=== PATIENT | female | born 1935 | race Caucasian/White ===

== ENCOUNTER 2017-11-20 10:59 | Emergency (ER) | payer MEDICARE ==
--- NOTE | 2017-11-20 11:41 | RAD ---
Indication: Ecchymosis at the LEFT temporal region post fall. History of breast carcinoma. Comparison: March 07, 2017 MRI. Technique: Noncontrast CT vertex of skull through foramen magnum. Report: Mild prominence of the cerebral sulci and cerebellar fissures reflecting atrophy. Unremarkable ventricles and basal cisterns. Negative for jo matter white matter obscuration, intra or extra-axial hemorrhage, or mass effect. Negative for calvarial or skull base fracture. Clear visualized paranasal sinuses and mastoid air spaces. Mild infiltrative LEFT frontotemporal scalp hematoma. IMPRESSION: 1. Mild LEFT frontotemporal scalp hematoma. 2. No CT evidence for fracture or traumatic brain injury. 3. Mild involutional change. No acute intracranial process evident.
[2017-11-20 12:57] VITALS: BP 158/94
--- NOTE | 2017-11-20 13:00 | RAD ---
Indication: LEFT fifth -- eighth rib fracture following injury. History of breast cancer. Comparison: February 23, 2017 CT. Technique: Sitting AP chest and 4 dedicated LEFT rib views. Report: No focal pulmonary lesion, compelling alveolar consolidation, pleural effusion, pneumothorax. Upper normal heart size. Mildly tortuous thoracic aorta. Unremarkable central pulmonary vasculature. No definitive LEFT rib fracture evident. Unremarkable soft tissue contours. 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 IMPRESSION: No LEFT rib fracture or pneumothorax evident. No evidence for acute intrathoracic disease.
--- NOTE | 2017-11-29 08:55 | ED ---
Reynaldo Wolfe Tiffany, scribed for Edgar Corona MD on 11/20/17 at 1151 . Complex/Multi-Sys Presentation - HPI Summary HPI Summary: The patient is an 82 year old female BIBA complains of bumping her head on ground s/p opening her car door, slipping on the snow, falling on the ground with her walker on 11/20/17 at 10:00. The patient rates the pain 2/10 in severity. Symptoms aggravated by nothing. Symptoms alleviated by nothing. States that she heard a crack when she hit her head, couldnt get up from ground but can never get up. Reports headache. Additionally complains of pain under left breast from falling on her right side. Patient denies dizziness, lightheadedness, neck pain. Also denies recent illness. Not taking blood thinners. - History Of Current Complaint Chief Complaint: EDHeadInjury Time Seen by Provider: 11/20/17 11:01 Hx Obtained From: Patient Onset/Duration: Sudden Onset, Lasting Minutes - At 10:00 today, Still Present Timing: Constant Severity Currently: Mild - 2/10 Aggravating Factor(s): Nothing Alleviating Factor(s): Nothing Associated Signs And Symptoms: Positive: Headache, Other - pain under right breast from falling on her right side; NEGATIVE: lightheadedness, neck pain, recent illness. Negative: Dizziness - Allergies/Home Medications Allergies/Adverse Reactions: Allergies Allergy/AdvReac Type Severity Reaction Status Date / Time statin Allergy Muscle Ache Uncoded 11/20/17 11:12 Home Medications: Home Medications Acetaminophen [Acetaminophen Extra Strength] 500 mg PO Q6HR PRN MDD 2000 mg [History Confirmed 11/20/17] Cholecalciferol TAB* [Vitamin D TAB*] 1,000 unit PO DAILY 11/20/17 [History Confirmed 11/20/17] Cholecalciferol TAB* [Vitamin D TAB*] 2,000 units PO DAILY 11/20/17 [History Confirmed 11/20/17] Meloxicam(NF) [Mobic(NF)] 15 mg PO DAILY 11/20/17 [History Confirmed 11/20/17] Solifenacin(NF) [Vesicare(NF)] 5 mg PO QAM 11/20/17 [History Confirmed 11/20/17] PMH/Surg Hx/FS Hx/Imm Hx Previously Healthy: No Endocrine/Hematology History: Denies: Hx Diabetes Cardiovascular History: Reports: Hx Angina - WITHIN THE LAST MONTH- PATIENT STATES THINKS WAS ACID REFLUX RELATED, Hx Hypercholesterolemia Denies: Hx Coronary Artery Disease, Hx Hypertension, Hx Myocardial Infarction , Hx Pacemaker/ICD, Hx Valvular Heart Disease Respiratory History: Denies: Hx Asthma, Hx Chronic Obstructive Pulmonary Disease (COPD) GI History: Reports: Hx Gastroesophageal Reflux Disease - HX OF WHEN YOUNGER, BUT STATES NOT RECENTLY, Other GI Disorders - CONSTIPATION History: Reports: Other Problems/Disorders - INCONTINENCE-DIFFICULTLY CONTROLLING URINE/ STATES HAS A PROLAPSED BLADDER Denies: Hx Renal Disease Musculoskeletal History: Reports: Hx Arthritis - ALL OVER, Hx Tendonitis - HANDS AND WRISTS Denies: Hx Osteoporosis Sensory History: Reports: Hx Contacts or Glasses - READING GLASSES Denies: Hx Hearing Aid Opthamlomology History: Reports: Hx Contacts or Glasses - READING GLASSES Neurological History: Reports: Hx Migraine - LAST 45 YEARS AGO Psychiatric History: Denies: Hx Panic Disorder - Cancer History Cancer Type, Location and Year: Right breast 2016 Hx Chemotherapy: No Hx Radiation Therapy: No - Surgical History Surgery Procedure, Year, and Place: HYSTERECTOMY-1969. APPY. OOPHERECTOMY- 1964. TONSILLECTOMY-1944. 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 07/01/16 lumpectomy right breast. BREAST BIOPSY-2002 Hx Anesthesia Reactions: No Infectious Disease History: No Infectious Disease History: Denies: Traveled Outside the [place] in Last 30 Days - Family History Known Family History: Positive: Diabetes - Social History Lives: Alone Alcohol Use: Daily Alcohol Amount: 2 OUNCES + PER DAY Hx Substance Use: No Substance Use Type: Reports: None Hx Tobacco Use: No Smoking Status (MU): Never Smoked Tobacco Have You Smoked in the Last Year: No Review of Systems Negative: Fever, Chills Negative: Erythema Negative: Sore Throat Negative: Chest Pain Negative: Shortness Of Breath, Cough Negative: Abdominal Pain, Vomiting, Nausea Negative: dysuria, hematuria Musculoskeletal: Negative - Neck pain Positive: Other - Pain under left breast. Negative: Myalgia, Edema Positive: Other - Bump on left temporal scalp. Negative: Rash Neurological: Negative - Dizziness, lightheadedness Positive: Headache All Other Systems Reviewed And Are Negative: Yes Physical Exam - Summary Physical Exam Summary: Constitutional: Well-developed, Well-nourished, Alert. (-) Distressed Skin: Warm, Dry HENT: 2-cm left temporal scalp hematoma Eyes: Conjunctiva normal Neck: Musculoskeletal ROM normal neck. (-) JVD, (-) Stridor, (-) Tracheal deviation Cardio: Rhythm regular, rate normal, Heart sounds normal; Intact distal pulses; The pedal pulses are 2+ and symmetric. Radial pulses are 2+ and symmetric. (-) Murmur Pulmonary/Chest wall: Effort normal. (-) Respiratory distress, (-) Wheezes, (-) Rales Abd: Soft, (-) Tenderness, (-) Distension, (-) Guarding, (-) Rebound Musculoskeletal: (-) Edema. Tenderness over the left lateral 10th rib. Lymph: (-) Cervical adenopathy Neuro: Alert, Oriented x3 Psych: Mood and affect Normal Triage Information Reviewed: Yes Vital Signs On Initial Exam: Initial Vitals Temp Pulse Resp BP Pulse Ox 98 F 69 21 156/89 99 11/20/17 11:04 11/20/17 11:04 11/20/17 11:04 11/20/17 11:04 11/20/17 11:04 Vital Signs Reviewed: Yes Diagnostics - Vital Signs Vital Signs Temp Pulse Resp BP Pulse Ox 11/20/17 11:04 98 F 69 21 156/89 99 - Laboratory Lab Statement: Any lab studies that have been ordered have been reviewed, and results considered in the medical decision making process. - Radiology Rib Radiology Interpretation Completed By: ED Physician - No pneumothorax. No rib fracture., Radiologist - No LEFT rib fracture or pneumothorax evident. No evidence for acute intrathoracic disease. ED physician has reviewed this report. - CT Brain CT Interpretation Completed By: Radiologist - 1. Mild LEFT frontotemporal scalp hematoma. 2. No CT evidence for fracture or traumatic brain injury. 3. Mild involutional change. No acute intracranial process evident. ED physician has reviewed this report. Re-Evaluation - Re-Evaluation First Eval Re-Evaluation Time: 12:55 Change: Unchanged Comment: Patient updated on scan results. Agreeable to discharge. Complex Multi-Symp Course/Dx Course Of Treatment: 82 y/o F complains of bump on scalp and left rib pain s/p slipping on snow and falling on ground. No evidence of pneumothorax or rib fracture from rib x-ray. CT brain shows mild frontotemporal scalp hematoma. Diagnosis rib contusion and scalp hematoma. Patient discharged with follow up from primary care provider in 2-3 days. - Diagnoses Provider Diagnoses: Rib contusion, Scalp hematoma Discharge - Sign-Out/Discharge Documenting (check all that apply): Discharge/Admit/Transfer - Discharge Plan Condition: Stable Disposition: HOME Patient Education Materials: Rib Contusion (ED) Referrals: Susan Rooney MD [Primary Care Provider] - 3 Days Additional Instructions: Follow up with your primary care provider in 2-3 days. RETURN TO THE EMERGENCY DEPARTMENT FOR CHANGING OR WORSENING SYMPTOMS. The documentation as recorded by the Reynaldo trujillo Tiffany accurately reflects the service I personally performed and the decisions made by , Edgar Corona MD.
== END 2017-11-20 13:08 | disposition home or self-care (01) ==
LOC: ED 10:59
DX: S20.212A Contusion of left front wall of thorax, initial encounter (principal); S00.03XA Contusion of scalp, initial encounter; W00.0XXA Fall on same level due to ice and snow, initial encounter; Y92.9 Unspecified place or not applicable; E78.00 Pure hypercholesterolemia, unspecified; Z85.3 Personal history of malignant neoplasm of breast
CPT/HCPCS: 70450; 99282

== ENCOUNTER 2019-01-01 10:17 | Day surgery (SDC) | payer MEDICARE ==
[~2019-01-01 10:17] MED LIST: Cyclopentolate 1% OPTH.SOL* 2 ML BTL ONE; Ketorolac 0.5% OPHTH (NF) 0.5 % 5 ML BTL ONE; Lidocaine 1%* 5 ML VIAL ONE; Neomycin/Polymy/Dex OPHTH.OIN* 3.5 GM ONE; Phenylephrine OPHTH SOL 2.5%* 2 ML ONE; Povidone Iodine 5% OPTH* 30 ML BTL ONE; Tetracaine 0.5% OPTH.SOL 4 ML* 1 DROP BTL ONE; Tropicamide 1% OPTH.SOL* BTL ONE; acetaZOLAMIDE TAB* 250 MG ONE
[2019-01-01] MEDS ORDERED: Midazolam* 1 MG/ML 2 ML VIAL (2 MG) ONE (11:05)
--- NOTE | 2019-01-01 12:38 | OP ---
DATE OF OPERATION: 01/01/19 - [place] [facility] DATE OF : 35 SURGEON: Epifanio Arizmendi MD ANESTHESIA: Monitored anesthesia care. PREOPERATIVE DIAGNOSIS: Cataract, right eye. POSTOPERATIVE DIAGNOSIS: Cataract, right eye. OPERATIVE PROCEDURE: Extracapsular cataract extraction of the right eye with intraocular lens implant. IMPLANT: SN60WF 17.0 diopter lens to the right eye. COMPLICATIONS: None. DESCRIPTION OF PROCEDURE: The patient was given phenylephrine 2.5 % and cyclopentolate 1% eye drops to the operative eye in the preoperative area. The patient was taken to the operating room where a time-out was taken to identify the correct patient, site, and side of surgery. The patient's right eye was prepped and draped in the usual sterile fashion with 5% Betadine. A second time- out was taken to verify the correct patient, side, and site of surgery, as well as the correct lens implant. A lid speculum was placed to the right eye. A 1mm paracentesis blade was used to make a clear corneal incision. Preservative-free 1% lidocaine was injected into the anterior chamber. DisCoVisc was then injected into the anterior chamber. A 2.75 mm keratome blade was used to make a triplanar incision. A cystotome initiated a capsulorrhexis, which was completed with Utrata forceps in a continuous and curvilinear manner. Hydrodissection of the lens was performed with BSS on a cannula. The lens could be spun in a capsular bag. The phacoemulsification handpiece was used with a divide-and- conquer technique to remove the nucleus. The I/A handpiece then removed the residual cortical lens material. DisCoVisc was injected to inflate the capsular bag. The planned SN60WF 17.0 diopter lens was injected into the capsular bag. The residual DisCoVisc was removed from the eye with the I/A handpiece. The corneal incisions were hydrated and no leaks occurred at physiologic pressure around 20 mmHg per palpation. The lid speculum was removed and drapes were removed. Maxitrol ointment was placed to the surface of the operative eye. An adhesive patch and shield was then placed on the operative eye. The patient was taken to the post-operative area in stable condition. [id number]/[facility] #: [id number] [facility]
[2019-01-01 12:56] VITALS: BP 142/70
== END 2019-01-01 12:46 | disposition home or self-care (01) ==
LOC: OREAST 10:17
PROVIDERS: ATTEND Student in an Organized Health Care Education/Training Program
DX: H25.11 Age-related nuclear cataract, right eye (principal); H40.059 Ocular hypertension, unspecified eye; H43.393 Other vitreous opacities, bilateral; F43.21 Adjustment disorder with depressed mood; F10.20 Alcohol dependence, uncomplicated; M80.08XD Age-related osteoporosis with current pathological fracture, vertebra(e), subsequent encounter for fracture with routine healing; R06.2 Wheezing; M16.0 Bilateral primary osteoarthritis of hip
CPT/HCPCS: A9270-GY; J2250; V2632

== ENCOUNTER 2019-01-08 10:08 | Day surgery (SDC) | payer MEDICARE ==
[~2019-01-08 10:08] MED LIST changes: +Acetaminophen TAB* 325 MG PO PRN; -Lidocaine 1%* 5 ML VIAL ONE; +Lidocaine 1%** 5 ML VIAL ONE
[2019-01-08] MEDS ORDERED: Midazolam* 1 MG/ML 5 ML VIAL (5 MG) ONE (11:28)
[2019-01-08 13:12] VITALS: BP 135/77
--- NOTE | 2019-01-08 14:20 | OP ---
DATE OF OPERATION: 01/08/19 - [place] [facility] DATE OF : 35 SURGEON: Epifanio Arizmendi MD ANESTHESIA: Monitored anesthesia care. PREOPERATIVE DIAGNOSIS: Cataract, left eye. POSTOPERATIVE DIAGNOSIS: Cataract, left eye. OPERATIVE PROCEDURE: Extracapsular cataract extraction of the left eye with intraocular lens implant. IMPLANT: SN60WF 17.5 diopter lens to the left eye. COMPLICATIONS: None. DESCRIPTION OF PROCEDURE: The patient was given phenylephrine 2.5 % and cyclopentolate 1% eye drops to the operative eye in the preoperative area. The patient was taken to the operating room where a time-out was taken to identify the correct patient, site, and side of surgery. The patient's left eye was prepped and draped in the usual sterile fashion with 5% Betadine. A second time- out was taken to verify the correct patient, side, and site of surgery, as well as the correct lens implant. A lid speculum was placed to the left eye. A 1mm paracentesis blade was used to make a clear corneal incision. Preservative-free 1% lidocaine was injected into the anterior chamber. DisCoVisc was then injected into the anterior chamber. A 2.75 mm keratome blade was used to make a triplanar incision. A cystotome initiated a capsulorrhexis, which was completed with Utrata forceps in a continuous and curvilinear manner. Hydrodissection of the lens was performed with BSS on a cannula. The lens could be spun in a capsular bag. The phacoemulsification handpiece was used with a divide-and- conquer technique to remove the nucleus. The I/A handpiece then removed the residual cortical lens material. DisCoVisc was injected to inflate the capsular bag. The planned SN60WF 17.5 diopter lens was injected into the capsular bag. The residual DisCoVisc was removed from the eye with the I/A handpiece. The corneal incisions were hydrated and no leaks occurred at physiologic pressure around 20 mmHg per palpation. The lid speculum was removed and drapes were removed. Maxitrol ointment was placed to the surface of the operative eye. An adhesive patch and shield was then placed on the operative eye. The patient was taken to the postoperative area in stable condition. [id number]/[facility] #: [id number] [facility]
== END 2019-01-08 13:00 | disposition home or self-care (01) ==
LOC: OREAST 10:08
PROVIDERS: ATTEND Student in an Organized Health Care Education/Training Program
DX: H25.12 Age-related nuclear cataract, left eye (principal); Z85.3 Personal history of malignant neoplasm of breast; M19.90 Unspecified osteoarthritis, unspecified site
CPT/HCPCS: A9270-GY; J2250; V2632

== ENCOUNTER 2020-12-23 18:20 | Inpatient (IN) ==
[2020-12-23] MEDS ORDERED: NS 0.9% 1000 ml BAG 1,000 ML IV ONE (18:32)
[2020-12-23 19:20] LABS: Hematocrit 13 % (35-47); Mean Corpuscular HGB Conc 33 g/dL (31-36); Mean Corpuscular Hemoglobin 41 pg (27-31); Mean Corpuscular Volume 127 fL (80-97); Mean Platelet Volume 9.6 fL (7.4-10.4); Platelet Count 452 10^3/uL (150-450); Red Blood Count 1.03 10^6 /uL (3.70-4.87); Red Cell Distribution Width 25 % (10-15); White Blood Count 8.1 10^3/uL (3.5-10.8)
[2020-12-23 19:34] LABS: Troponin I 0.01 ng/mL (<0.03)
[2020-12-23 19:49] LABS: ALT 19 U/L (7-52); AST 21 U/L (13-39); Albumin 2.8 g/dL (3.2-5.2); Albumin/Globulin Ratio 1.2 (1-3); Alkaline Phosphatase 69 U/L (35-149); Anion Gap 12 mmol/L (2-11); Blood Urea Nitrogen 17 mg/dL (6-24); C Reactive Protein 143.71 mg/L (<8.01); CO2 Carbon Dioxide 19 mmol/L (22-32); Calcium 7.9 mg/dL (8.6-10.3); Chloride 108 mmol/L (101-111); EGFR African American 138.7 (>60); EGFR Non-African American 114.6 (>60); Globulin 2.4 g/dL (2-4); Glucose 94 mg/dL (70-100); Magnesium 1.9 mg/dL (1.9-2.7); Potassium 3.3 mmol/L (3.5-5.0); Sodium 139 mmol/L (135-145); Total Protein 5.2 g/dL (6.4-8.9)
[2020-12-23 19:55] LABS: TSH Ultra Thyroid Stim Horm 2.91 mcIU/mL (0.34-5.60)
[2020-12-23 20:06] LABS: ABS Basophils 0.1 10^3/ul (0-0.2); ABS Eosinophils 0.1 10^3/ul (0-0.6); ABS Lymphocytes 0.5 10^3/ul (1.0-4.8); ABS Neutrophils 6.5 10^3/ul (1.5-7.7); Alcohol, S 11 mg/dL (<10); Eosinophil % 1.2 %; Lymphocyte % 5.8 %; Nucleated Red Blood Cells % 0.1; Platelet Morphology Large
[2020-12-23 20:07] LABS: Polychromasia 1+
[2020-12-23 20:08] LABS: Burr Cells 1+; Schistocytes 1+
[2020-12-23 21:12] LABS: Activated Partial Thrombo Time 20.5 seconds (26.0-38.0); INR 1.34 (0.82-1.09)
[2020-12-23] MEDS ORDERED: Potassium Chlor 20 meq TAB.ER PO ONE (21:48)
[2020-12-23 22:08] LABS: Erythrocyte Sed Rate 75 mm/Hr (0-29)
[2020-12-23 23:14] LABS: % Iron Saturation 28 % (15-55); Iron 38 ug/dL (50-212); Total Iron Binding Capacity 137 mcg/dL (250-450); Transferrin 98 mg/dL (203-362); Unsaturated Iron Binding < 122 ug/dL
[2020-12-23] MEDS: cefTRIAXone 1 gm/50 mL NS BAG 1 GM/50 ML BAG IVPB SCH (23:20)
[2020-12-23 23:39] LABS: Folate 17.09 ng/mL (5.90-24.80)
[2020-12-23 23:40] LABS: Vitamin B12 1067 pg/mL (180-914)
[2020-12-23 23:51] LABS: Hemoglobin 4.3 g/dL (12.0-16.0)
[2020-12-23 23:55] LABS: Ferritin 521.3 ng/mL (11-307)
[2020-12-24] MEDS ORDERED: NS 0.9% 500 ml BAG 500 ML IV ONE (03:49)
[2020-12-24 07:13] LABS: ABS Basophils 0.1 10^3/ul (0-0.2); ABS Eosinophils 0.3 10^3/ul (0-0.6); ABS Lymphocytes 0.7 10^3/ul (1.0-4.8); ABS Monocytes 1.1 10^3/ul (0-0.8); ABS Neutrophils 6.4 10^3/ul (1.5-7.7); Eosinophil % 3.3 %; Hematocrit 18 % (35-47); Lymphocyte % 8.2 %; Mean Corpuscular HGB Conc 34 g/dL (31-36); Mean Corpuscular Hemoglobin 35 pg (27-31); Mean Corpuscular Volume 104 fL (80-97); Mean Platelet Volume 9.5 fL (7.4-10.4); Nucleated Red Blood Cells % 0.1; Platelet Count 406 10^3/uL (150-450); Red Blood Count 1.71 10^6 /uL (3.70-4.87); Red Cell Distribution Width 34 % (10-15); White Blood Count 8.6 10^3/uL (3.5-10.8)
[2020-12-24 07:23] LABS: Calcium 7.5 mg/dL (8.6-10.3); EGFR African American 127.1 (>60); Potassium 3.5 mmol/L (3.5-5.0)
[2020-12-24 07:53] LABS: Polychromasia 1+
[2020-12-24] MEDS: Collagenase 250 units/gm OINT 1 tube TOPICAL SCH ×2 (11:55→21:13)
[2020-12-24 17:35] LABS: Hematocrit 20 % (35-47)
[2020-12-24] MEDS: cefTRIAXone 1 gm/50 mL NS BAG 1 GM/50 ML BAG IVPB SCH (21:12)
[2020-12-25 04:35] LABS: Hematocrit 23 % (35-47); Hemoglobin 7.8 g/dL (12.0-16.0)
[2020-12-25 04:38] LABS: Calcium 7.5 mg/dL (8.6-10.3); EGFR African American 152.4 (>60); EGFR Non-African American 125.9 (>60); Magnesium 1.6 mg/dL (1.9-2.7); Potassium 3.6 mmol/L (3.5-5.0)
[2020-12-25 06:29] LABS: ABS Basophils 0.1 10^3/ul (0-0.2); ABS Eosinophils 0.4 10^3/ul (0-0.6); ABS Lymphocytes 1.1 10^3/ul (1.0-4.8); ABS Monocytes 0.9 10^3/ul (0-0.8); ABS Neutrophils 4.4 10^3/ul (1.5-7.7); Eosinophil % 5.1 %; Hematocrit 23 % (35-47); Hemoglobin 7.8 g/dL (12.0-16.0); Lymphocyte % 15.9 %; Mean Corpuscular HGB Conc 34 g/dL (31-36); Mean Corpuscular Hemoglobin 34 pg (27-31); Mean Corpuscular Volume 99 fL (80-97); Mean Platelet Volume 9.9 fL (7.4-10.4); Nucleated Red Blood Cells % 0.2; Platelet Count 317 10^3/uL (150-450); Red Blood Count 2.31 10^6 /uL (3.70-4.87); Red Cell Distribution Width 30 % (10-15); White Blood Count 6.9 10^3/uL (3.5-10.8)
[2020-12-25 09:20] LABS: LDH 237 U/L (140-271)
[2020-12-25] MEDS ORDERED: Magnesium Sulfate IV 3 GM in NS 0.9% 100 ml BAG 100 ML IVPB ONE (09:30)
[2020-12-25] MEDS: Collagenase 250 units/gm OINT 1 tube TOPICAL SCH ×2 (10:13→22:21)
[2020-12-25] MEDS ORDERED: Polyethylene Glycol 3350 17 GM PACKET PO PRN (13:07)
[2020-12-25 15:52] LABS: Hematocrit 23 % (35-47); Hemoglobin 7.8 g/dL (12.0-16.0)
[2020-12-25] MEDS ORDERED: Furosemide 20 mg/2 ml IV VIAL IV SLOW PU ONE (17:34)
[2020-12-25] MEDS: cefTRIAXone 1 gm/50 mL NS BAG 1 GM/50 ML BAG IVPB SCH (22:21)
[2020-12-25] MEDS: Senna TAB 8.6 mg TAB PO PRN (22:28)
[2020-12-26 00:21] LABS: Hematocrit 23 % (35-47); Hemoglobin 7.7 g/dL (12.0-16.0)
[2020-12-26 06:18] LABS: Calcium 7.8 mg/dL (8.6-10.3); EGFR African American 160.2 (>60); EGFR Non-African American 132.4 (>60); Magnesium 1.9 mg/dL (1.9-2.7); Potassium 3.8 mmol/L (3.5-5.0)
[2020-12-26 08:42] LABS: Hematocrit 23 % (35-47); Hematocrit for Retic CNT 23 % (35-47); Hemoglobin 7.5 g/dL (12.0-16.0); RBC Retic Count 2.26 10^6/uL (3.70-4.87)
[2020-12-26] MEDS: Magnesium Hydroxide LIQ 30 ML UDC PO PRN (08:42)
[2020-12-26 08:48] LABS: Corrected Retic Count 0.5 % (0.5-1.5); Immature Retic Fraction 0.58
[2020-12-26] MEDS ORDERED: Lidocaine 2% 10 ML VIAL INJ ONE (09:22)
[2020-12-26] MEDS: Collagenase 250 units/gm OINT 1 tube TOPICAL SCH ×2 (09:43→22:18)
[2020-12-26 16:09] LABS: Hematocrit 22 % (35-47); Hemoglobin 7.3 g/dL (12.0-16.0)
[2020-12-26] MEDS: cefTRIAXone 1 gm/50 mL NS BAG 1 GM/50 ML BAG IVPB SCH (22:18)
[2020-12-27 07:19] LABS: Calcium 7.8 mg/dL (8.6-10.3); EGFR African American 207.3 (>60); EGFR Non-African American 171.3 (>60); Magnesium 1.7 mg/dL (1.9-2.7)
[2020-12-27] MEDS ORDERED: Magnesium Sulfate 2 gm BAG 2 GM/50 ML BAG IVPB ONE (08:16)
[2020-12-27 08:22] LABS: ABS Basophils 0.2 10^3/ul (0-0.2); ABS Eosinophils 0.4 10^3/ul (0-0.6); ABS Lymphocytes 0.8 10^3/ul (1.0-4.8); ABS Monocytes 0.5 10^3/ul (0-0.8); ABS Neutrophils 3.1 10^3/ul (1.5-7.7); Eosinophil % 7.4 %; Hematocrit 22 % (35-47); Hemoglobin 7.6 g/dL (12.0-16.0); Lymphocyte % 16.1 %; Mean Corpuscular HGB Conc 34 g/dL (31-36); Mean Corpuscular Hemoglobin 34 pg (27-31); Mean Corpuscular Volume 100 fL (80-97); Mean Platelet Volume 10.7 fL (7.4-10.4); Platelet Count 289 10^3/uL (150-450); Red Cell Distribution Width 29 % (10-15); White Blood Count 5.1 10^3/uL (3.5-10.8)
[2020-12-27] MEDS: Collagenase 250 units/gm OINT 1 tube TOPICAL SCH ×2 (10:00→23:00)
[2020-12-28] MEDS: Collagenase 250 units/gm OINT 1 tube TOPICAL SCH ×2 (08:59→19:00)
[2020-12-29 06:29] LABS: ABS Basophils 0.3 10^3/ul (0-0.2); ABS Eosinophils 0.4 10^3/ul (0-0.6); ABS Monocytes 0.6 10^3/ul (0-0.8); ABS Neutrophils 2.2 10^3/ul (1.5-7.7); Eosinophil % 8.8 %; Hematocrit 20 % (35-47); Hemoglobin 6.6 g/dL (12.0-16.0); Lymphocyte % 22.7 %; Mean Corpuscular HGB Conc 33 g/dL (31-36); Mean Corpuscular Hemoglobin 33 pg (27-31); Mean Corpuscular Volume 101 fL (80-97); Platelet Count 299 10^3/uL (150-450); Red Blood Count 1.99 10^6 /uL (3.70-4.87); Red Cell Distribution Width 30 % (10-15); White Blood Count 4.5 10^3/uL (3.5-10.8)
[2020-12-29 06:38] LABS: Calcium 7.9 mg/dL (8.6-10.3); EGFR African American 194.8 (>60); Potassium 4.6 mmol/L (3.5-5.0)
[2020-12-29] MEDS: Collagenase 250 units/gm OINT 1 tube TOPICAL SCH ×2 (18:29→21:48)
[2020-12-30 06:51] LABS: Hematocrit 24 % (35-47); Hemoglobin 7.9 g/dL (12.0-16.0)
[2020-12-30] MEDS: Collagenase 250 units/gm OINT 1 tube TOPICAL SCH ×2 (09:00→23:11)
[2020-12-31 06:57] LABS: ABS Basophils 0.3 10^3/ul (0-0.2); ABS Eosinophils 0.5 10^3/ul (0-0.6); ABS Lymphocytes 0.8 10^3/ul (1.0-4.8); ABS Monocytes 0.9 10^3/ul (0-0.8); Hematocrit 24 % (35-47); Lymphocyte % 12.3 %; Mean Corpuscular HGB Conc 34 g/dL (31-36); Mean Corpuscular Hemoglobin 33 pg (27-31); Mean Corpuscular Volume 98 fL (80-97); Mean Platelet Volume 10.1 fL (7.4-10.4); Nucleated Red Blood Cells % 0.1; Platelet Count 370 10^3/uL (150-450); Red Blood Count 2.43 10^6 /uL (3.70-4.87); Red Cell Distribution Width 28 % (10-15); White Blood Count 6.5 10^3/uL (3.5-10.8)
[2020-12-31 07:17] LABS: EGFR African American 200.8 (>60); Magnesium 1.9 mg/dL (1.9-2.7); Potassium 4.3 mmol/L (3.5-5.0)
[2020-12-31] MEDS: Collagenase 250 units/gm OINT 1 tube TOPICAL SCH ×2 (07:20→22:49)
[2020-12-31 16:26] LABS: Kappa Free Light Chain 2.86 mg/dL; Lambda Free Light Chain, S 3.02 mg/dL
[2021-01-01] MEDS: Collagenase 250 units/gm OINT 1 tube TOPICAL SCH ×2 (11:57→20:57)
[2021-01-01 12:08] LABS: Albumin 1.8 g/dL (3.4-4.7); Albumin/Globulin Ratio 0.81; Gamma Globulin 0.7 g/dL (0.6-1.6)
[2021-01-02] MEDS: Collagenase 250 units/gm OINT 1 tube TOPICAL SCH ×2 (10:15→20:45)
[2021-01-02 15:53] LABS: BM Result Summary Abnormal
[2021-01-03 07:27] LABS: Calcium 7.8 mg/dL (8.6-10.3); EGFR African American 221.4 (>60); Potassium 4.1 mmol/L (3.5-5.0)
[2021-01-03 07:29] LABS: Hematocrit 22 % (35-47); Hemoglobin 7.4 g/dL (12.0-16.0); Mean Corpuscular HGB Conc 34 g/dL (31-36); Mean Corpuscular Hemoglobin 33 pg (27-31); Mean Corpuscular Volume 97 fL (80-97); Platelet Count 482 10^3/uL (150-450); Red Blood Count 2.27 10^6 /uL (3.70-4.87); Red Cell Distribution Width 28 % (10-15); White Blood Count 4.7 10^3/uL (3.5-10.8)
[2021-01-03 08:36] LABS: ABS Basophils 0.2 10^3/ul (0-0.2); ABS Eosinophils 0.4 10^3/ul (0-0.6); ABS Lymphocytes 0.7 10^3/ul (1.0-4.8); ABS Monocytes 0.6 10^3/ul (0-0.8); ABS Neutrophils 2.8 10^3/ul (1.5-7.7); Eosinophil % 7.5 %; Lymphocyte % 15.5 %; Nucleated Red Blood Cells % 0.1; Polychromasia 1+
[2021-01-03] MEDS: Collagenase 250 units/gm OINT 1 tube TOPICAL SCH ×2 (15:47→21:00)
[2021-01-04 05:01] LABS: ABS Basophils 0.2 10^3/ul (0-0.2); ABS Eosinophils 0.4 10^3/ul (0-0.6); ABS Monocytes 0.6 10^3/ul (0-0.8); ABS Neutrophils 2.3 10^3/ul (1.5-7.7); Hematocrit 21 % (35-47); Lymphocyte % 21.3 %; Mean Corpuscular HGB Conc 34 g/dL (31-36); Mean Corpuscular Hemoglobin 33 pg (27-31); Mean Corpuscular Volume 98 fL (80-97); Mean Platelet Volume 9.5 fL (7.4-10.4); Platelet Count 525 10^3/uL (150-450); Red Blood Count 2.12 10^6 /uL (3.70-4.87); Red Cell Distribution Width 27 % (10-15); White Blood Count 4.5 10^3/uL (3.5-10.8)
[2021-01-04] MEDS: Collagenase 250 units/gm OINT 1 tube TOPICAL SCH ×2 (11:59→23:05)
[2021-01-05 03:30] LABS: ABS Basophils 0.3 10^3/ul (0-0.2); ABS Eosinophils 0.5 10^3/ul (0-0.6); ABS Monocytes 0.6 10^3/ul (0-0.8); ABS Neutrophils 2.4 10^3/ul (1.5-7.7); Eosinophil % 9.8 %; Hematocrit 21 % (35-47); Lymphocyte % 21.7 %; Mean Corpuscular HGB Conc 34 g/dL (31-36); Mean Corpuscular Hemoglobin 33 pg (27-31); Mean Corpuscular Volume 97 fL (80-97); Mean Platelet Volume 9.4 fL (7.4-10.4); Nucleated Red Blood Cells % 0.1; Platelet Count 553 10^3/uL (150-450); Red Blood Count 2.15 10^6 /uL (3.70-4.87); Red Cell Distribution Width 27 % (10-15); White Blood Count 4.7 10^3/uL (3.5-10.8)
[2021-01-05] MEDS: Collagenase 250 units/gm OINT 1 tube TOPICAL SCH ×2 (07:53→22:30)
[2021-01-06 07:29] LABS: ABS Basophils 0.2 10^3/ul (0-0.2); ABS Eosinophils 0.5 10^3/ul (0-0.6); ABS Lymphocytes 0.8 10^3/ul (1.0-4.8); ABS Monocytes 0.6 10^3/ul (0-0.8); Eosinophil % 9.5 %; Hematocrit 21 % (35-47); Hemoglobin 7.3 g/dL (12.0-16.0); Lymphocyte % 16.2 %; Mean Corpuscular HGB Conc 35 g/dL (31-36); Mean Corpuscular Hemoglobin 34 pg (27-31); Mean Corpuscular Volume 98 fL (80-97); Mean Platelet Volume 9.5 fL (7.4-10.4); Platelet Count 642 10^3/uL (150-450); Red Blood Count 2.16 10^6 /uL (3.70-4.87); Red Cell Distribution Width 28 % (10-15)
[2021-01-06] MEDS: Collagenase 250 units/gm OINT 1 tube TOPICAL SCH ×2 (13:12→22:08)
[2021-01-07 07:09] LABS: ABS Basophils 0.2 10^3/ul (0-0.2); ABS Eosinophils 0.5 10^3/ul (0-0.6); ABS Lymphocytes 0.8 10^3/ul (1.0-4.8); ABS Monocytes 0.6 10^3/ul (0-0.8); ABS Neutrophils 2.6 10^3/ul (1.5-7.7); Eosinophil % 11.1 %; Hematocrit 21 % (35-47); Lymphocyte % 16.3 %; Mean Corpuscular HGB Conc 33 g/dL (31-36); Mean Corpuscular Hemoglobin 33 pg (27-31); Mean Corpuscular Volume 97 fL (80-97); Mean Platelet Volume 9.5 fL (7.4-10.4); Platelet Count 639 10^3/uL (150-450); Red Blood Count 2.16 10^6 /uL (3.70-4.87); Red Cell Distribution Width 28 % (10-15); White Blood Count 4.8 10^3/uL (3.5-10.8)
[2021-01-07] MEDS: Collagenase 250 units/gm OINT 1 tube TOPICAL SCH ×2 (10:13→21:35)
[2021-01-07] MEDS: Magnesium Hydroxide LIQ 30 ML UDC PO PRN ×2 (10:13→21:15)
[2021-01-07 10:49] LABS: FMDS Result Summary Abnormal
[2021-01-07] MEDS: Senna TAB 8.6 mg TAB PO PRN (21:15)
[2021-01-08] MEDS: Magnesium Hydroxide LIQ 30 ML UDC PO PRN (10:04)
[2021-01-08] MEDS: Collagenase 250 units/gm OINT 1 tube TOPICAL SCH (12:42)
[2021-01-08 13:00] VITALS: BP 106/48
== END 2021-01-08 13:35 | DRG 811 ==
LOC: ED 18:20 → MED 21:05
PROVIDERS: ADMIT Internal Medicine; ATTEND Internal Medicine

== ENCOUNTER 2022-12-18 15:00 | Inpatient (IN) ==
[2022-12-18 16:19] LABS: Hematocrit 14.4 % (35-45); Mean Corpuscular Hgb Conc 34.6 g/dL (31-36); Mean Corpuscular Volume 98.1 fL (80-97); Mean Platelet Volume 9.7 fL (7.5-11.2); Platelet Count 65 10^3/uL (150-450); Red Blood Count 1.46 10^6/uL (3.63-4.92); Red Cell Distribution Width 27.2 % (12-17)
[2022-12-18 16:34] LABS: ABS Eosinophils 0.2 10^3/uL (0.0-0.5); ABS Lymphocytes 0.5 10^3/uL (1.0-4.8); ABS Monocytes 0.3 10^3/uL (0.0-0.9); ABS Nucleated RBC 0.01 10^3/ul; Eosinophil % 8.6 %; Lymphocyte % 26.1 %; Nucleated Red Blood Cells % 0.4 /100 WBC (0.0-0.4)
[2022-12-18 16:35] LABS: Anisocytosis 3+; Macrocytosis 1+; Microcytosis 1+; Polychromasia 1+
[2022-12-18 16:37] LABS: Spherocytes 1+
[2022-12-18 16:53] LABS: Albumin 3.1 g/dL (3.2-5.2); Albumin/Globulin Ratio 1.6 (1-3); C Reactive Protein 126.77 mg/L (<8.01); Creatinine, Serum 0.75 mg/dL (0.51-0.95); Phosphorus 3.5 mg/dL (2.5-5.0); Potassium 3.3 mmol/L (3.5-5.0); Total Bilirubin 1.5 mg/dL (0.2-1.0); Total Protein 5.1 g/dL (6.4-8.9)
[2022-12-18 17:52] LABS: High Sensitivity Troponin 1 Hr 11 pg/mL (<15)
[2022-12-18] MEDS ORDERED: Furosemide 20 mg/2 ml IV VIAL IV SLOW PU ONE (17:56)
[2022-12-19 07:06] LABS: ABS Eosinophils 0.2 10^3/uL (0.0-0.5); ABS Lymphocytes 0.7 10^3/uL (1.0-4.8); ABS Monocytes 0.4 10^3/uL (0.0-0.9); ABS Neutrophils 0.8 10^3/uL (1.5-7.6); ABS Nucleated RBC 0.02 10^3/ul; Eosinophil % 8.6 %; Hematocrit 16.6 % (35-45); Hemoglobin 5.9 g/dL (11.5-14.3); Lymphocyte % 34.3 %; Mean Corpuscular Hemoglobin 33.1 pg (27-33); Mean Corpuscular Hgb Conc 35.4 g/dL (31-36); Mean Corpuscular Volume 93.3 fL (80-97); Mean Platelet Volume 8.9 fL (7.5-11.2); Nucleated Red Blood Cells % 0.8 /100 WBC (0.0-0.4); Platelet Count 44 10^3/uL (150-450); Red Blood Count 1.78 10^6/uL (3.63-4.92); Red Cell Distribution Width 20.4 % (12-17); White Blood Count 2.1 10^3/uL (3.8-11.8)
[2022-12-19] MEDS ORDERED: Potassium EFFERVES 25 meq TAB PO ONE (07:14)
[2022-12-19] MEDS: Cholecalciferol (VIT D3) 1,000 unit TAB PO SCH (08:52)
[2022-12-19] MEDS ORDERED: NF:Lenalidomide 10 mg CAP (NF) PO SCH (09:00)
[2022-12-19 16:08] LABS: ABS Eosinophils 0.2 10^3/uL (0.0-0.5); ABS Lymphocytes 0.7 10^3/uL (1.0-4.8); ABS Monocytes 0.4 10^3/uL (0.0-0.9); ABS Nucleated RBC 0.02 10^3/ul; Hematocrit 20.1 % (35-45); Lymphocyte % 29.9 %; Mean Corpuscular Volume 91.3 fL (80-97); Mean Platelet Volume 9.8 fL (7.5-11.2); Nucleated Red Blood Cells % 1.1 /100 WBC (0.0-0.4); Platelet Count 52 10^3/uL (150-450); Red Cell Distribution Width 18.5 % (12-17); White Blood Count 2.3 10^3/uL (3.8-11.8)
[2022-12-19 16:56] LABS: Urine Appearance Turbid; Urine Bilirubin Negative (Negative); Urine Blood Negative (Negative); Urine Color Amber; Urine Glucose Negative (Negative); Urine Ketones Negative (Negative); Urine Nitrite Negative (Negative); Urine Protein 1+(30 mg/dL) (Negative); Urine Specific Gravity 1.019 (1.002-1.030); Urine Urobilinogen Positive (Negative)
[2022-12-19 17:02] LABS: Urine Bacteria 3+ (Absent); Urine Red Blood Cell Trace(0-2/hpf) (Absent); Urine Renal Epithelial Cells Present (Absent); Urine Squamous Epithelial Cell Present (Absent); Urine White Blood Cell 3+(>20/hpf) (Absent)
[2022-12-20 06:29] LABS: Hematocrit 19.9 % (35-45); Hemoglobin 7.1 g/dL (11.5-14.3); Mean Corpuscular Hemoglobin 32.6 pg (27-33); Mean Corpuscular Hgb Conc 35.5 g/dL (31-36); Mean Corpuscular Volume 91.8 fL (80-97); Mean Platelet Volume 10.1 fL (7.5-11.2); Platelet Count 49 10^3/uL (150-450); Red Blood Count 2.17 10^6/uL (3.63-4.92); Red Cell Distribution Width 19.9 % (12-17); White Blood Count 2.1 10^3/uL (3.8-11.8)
[2022-12-20 06:41] LABS: Calcium 7.5 mg/dL (8.6-10.3); Magnesium 1.9 mg/dL (1.9-2.7); Potassium 3.6 mmol/L (3.5-5.0)
[2022-12-20 06:47] LABS: Creatinine, Serum 0.52 mg/dL (0.51-0.95); eGFR CKD-EPI 89.9 (>60)
[2022-12-20 07:04] LABS: Anisocytosis 2+
[2022-12-20 07:05] LABS: ABS Eosinophils 0.1 10^3/uL (0.0-0.5); ABS Lymphocytes 0.6 10^3/uL (1.0-4.8); ABS Monocytes 0.4 10^3/uL (0.0-0.9); ABS Nucleated RBC 0.02 10^3/ul; Eosinophil % 5.5 %; Lymphocyte % 26.8 %; Nucleated Red Blood Cells % 0.9 /100 WBC (0.0-0.4)
[2022-12-20] MEDS ORDERED: Potassium EFFERVES 25 meq TAB PO ONE (07:13)
[2022-12-20] MEDS ORDERED: CALCIUM GLUCONATE 1GM/50ML NS 1 GM/50 ML BAG IV ONE (07:13)
[2022-12-20] MEDS: Cholecalciferol (VIT D3) 1,000 unit TAB PO SCH (08:53)
[2022-12-20] MEDS ORDERED: Psyllium PAK PO PRN (14:21)
[2022-12-20] MEDS ORDERED: Polyethylene Glycol 3350 17 GM PACKET PO PRN (15:53)
[2022-12-21 06:20] LABS: ABS Eosinophils 0.1 10^3/uL (0.0-0.5); ABS Lymphocytes 0.9 10^3/uL (1.0-4.8); ABS Monocytes 0.4 10^3/uL (0.0-0.9); ABS Nucleated RBC 0.01 10^3/ul; Eosinophil % 5.9 %; Hematocrit 19.9 % (35-45); Lymphocyte % 35.8 %; Mean Corpuscular Volume 94.2 fL (80-97); Mean Platelet Volume 9.7 fL (7.5-11.2); Nucleated Red Blood Cells % 0.2 /100 WBC (0.0-0.4); Platelet Count 49 10^3/uL (150-450); Red Blood Count 2.11 10^6/uL (3.63-4.92); Red Cell Distribution Width 22.1 % (12-17); White Blood Count 2.5 10^3/uL (3.8-11.8)
[2022-12-21 06:31] LABS: Calcium 7.5 mg/dL (8.6-10.3); Creatinine, Serum 0.45 mg/dL (0.51-0.95); Magnesium 1.7 mg/dL (1.9-2.7); eGFR CKD-EPI 93.1 (>60)
[2022-12-21] MEDS ORDERED: Magnesium Sulfate 2 gm BAG 2 GM/50 ML BAG IVPB ONE (07:30)
[2022-12-21] MEDS ORDERED: CALCIUM GLUCONATE 1GM/50ML NS 1 GM/50 ML BAG IV ONE (08:00)
[2022-12-21] MEDS: Cholecalciferol (VIT D3) 1,000 unit TAB PO SCH (08:26)
[2022-12-21] MEDS: cefTRIAXone 1 gm/50 mL D5W 1 GM/50 ML BAG IV SCH (13:47)
[2022-12-22 06:17] LABS: ABS Eosinophils 0.2 10^3/uL (0.0-0.5); ABS Monocytes 0.5 10^3/uL (0.0-0.9); ABS Nucleated RBC 0.01 10^3/ul; Hematocrit 21.9 % (35-45); Hemoglobin 7.6 g/dL (11.5-14.3); Lymphocyte % 36.9 %; Mean Corpuscular Hemoglobin 33.1 pg (27-33); Mean Corpuscular Hgb Conc 34.5 g/dL (31-36); Mean Platelet Volume 9.5 fL (7.5-11.2); Nucleated Red Blood Cells % 0.5 /100 WBC (0.0-0.4); Platelet Count 57 10^3/uL (150-450); Red Blood Count 2.28 10^6/uL (3.63-4.92); Red Cell Distribution Width 20.2 % (12-17); White Blood Count 2.7 10^3/uL (3.8-11.8)
[2022-12-22 06:34] LABS: Calcium 7.7 mg/dL (8.6-10.3); Creatinine, Serum 0.45 mg/dL (0.51-0.95); Potassium 4.3 mmol/L (3.5-5.0); eGFR CKD-EPI 93.1 (>60)
[2022-12-22] MEDS: Cholecalciferol (VIT D3) 1,000 unit TAB PO SCH (10:28)
[2022-12-22] MEDS: cefTRIAXone 1 gm/50 mL D5W 1 GM/50 ML BAG IV SCH (17:16)
[2022-12-23 05:50] LABS: Hematocrit 20.2 % (35-45); Hemoglobin 6.9 g/dL (11.5-14.3); Mean Corpuscular Hemoglobin 32.2 pg (27-33); Mean Corpuscular Volume 94.8 fL (80-97); Mean Platelet Volume 9.2 fL (7.5-11.2); Platelet Count 64 10^3/uL (150-450); Red Blood Count 2.13 10^6/uL (3.63-4.92); Red Cell Distribution Width 20.7 % (12-17); White Blood Count 2.5 10^3/uL (3.8-11.8)
[2022-12-23 06:14] LABS: Calcium 7.7 mg/dL (8.6-10.3); Creatinine, Serum 0.41 mg/dL (0.51-0.95); Magnesium 1.8 mg/dL (1.9-2.7); Potassium 4.1 mmol/L (3.5-5.0); eGFR CKD-EPI 95.2 (>60)
[2022-12-23 07:02] LABS: Anisocytosis 3+; Polychromasia 1+
[2022-12-23 07:03] LABS: ABS Eosinophils 0.1 10^3/uL (0.0-0.5); ABS Lymphocytes 0.9 10^3/uL (1.0-4.8); ABS Monocytes 0.5 10^3/uL (0.0-0.9); ABS Nucleated RBC 0.01 10^3/ul; Eosinophil % 5.3 %; Nucleated Red Blood Cells % 0.5 /100 WBC (0.0-0.4)
[2022-12-23] MEDS ORDERED: Magnesium Sulfate 2 gm BAG 2 GM/50 ML BAG IVPB ONE (08:30)
[2022-12-23] MEDS: Cholecalciferol (VIT D3) 1,000 unit TAB PO SCH (08:31)
[2022-12-23] MEDS: cefTRIAXone 1 gm/50 mL D5W 1 GM/50 ML BAG IV SCH (12:55)
[2022-12-24 06:22] LABS: ABS Eosinophils 0.1 10^3/uL (0.0-0.5); ABS Lymphocytes 0.9 10^3/uL (1.0-4.8); ABS Monocytes 0.5 10^3/uL (0.0-0.9); ABS Nucleated RBC 0.01 10^3/ul; Eosinophil % 3.9 %; Hematocrit 19.7 % (35-45); Hemoglobin 6.7 g/dL (11.5-14.3); Mean Corpuscular Hemoglobin 32.1 pg (27-33); Mean Corpuscular Volume 94.5 fL (80-97); Mean Platelet Volume 8.8 fL (7.5-11.2); Nucleated Red Blood Cells % 0.3 /100 WBC (0.0-0.4); Platelet Count 67 10^3/uL (150-450); Red Blood Count 2.09 10^6/uL (3.63-4.92); Red Cell Distribution Width 21.3 % (12-17); White Blood Count 2.6 10^3/uL (3.8-11.8)
[2022-12-24] MEDS: Cholecalciferol (VIT D3) 1,000 unit TAB PO SCH (08:17)
[2022-12-24] MEDS: cefTRIAXone 1 gm/50 mL D5W 1 GM/50 ML BAG IV SCH (14:13)
[2022-12-25 06:15] LABS: ABS Eosinophils 0.1 10^3/uL (0.0-0.5); ABS Lymphocytes 0.9 10^3/uL (1.0-4.8); ABS Monocytes 0.5 10^3/uL (0.0-0.9); ABS Neutrophils 1.1 10^3/uL (1.5-7.6); ABS Nucleated RBC 0.01 10^3/ul; Eosinophil % 4.6 %; Hematocrit 21.3 % (35-45); Hemoglobin 7.4 g/dL (11.5-14.3); Lymphocyte % 33.7 %; Mean Corpuscular Hemoglobin 32.3 pg (27-33); Mean Corpuscular Hgb Conc 34.7 g/dL (31-36); Mean Corpuscular Volume 93.1 fL (80-97); Mean Platelet Volume 8.3 fL (7.5-11.2); Nucleated Red Blood Cells % 0.4 /100 WBC (0.0-0.4); Platelet Count 83 10^3/uL (150-450); Red Blood Count 2.29 10^6/uL (3.63-4.92); Red Cell Distribution Width 19.1 % (12-17); White Blood Count 2.6 10^3/uL (3.8-11.8)
[2022-12-25 06:25] LABS: Calcium 8.2 mg/dL (8.6-10.3); Creatinine, Serum 0.46 mg/dL (0.51-0.95); Magnesium 1.8 mg/dL (1.9-2.7); Potassium 4.4 mmol/L (3.5-5.0); eGFR CKD-EPI 92.6 (>60)
[2022-12-25] MEDS ORDERED: Magnesium Sulfate 2 gm BAG 2 GM/50 ML BAG IVPB ONE (07:05)
[2022-12-25] MEDS: Cholecalciferol (VIT D3) 1,000 unit TAB PO SCH (07:41)
[2022-12-25] MEDS: cefTRIAXone 1 gm/50 mL D5W 1 GM/50 ML BAG IV SCH (12:50)
[2022-12-26 08:02] LABS: Calcium 8.6 mg/dL (8.6-10.3); Creatinine, Serum 0.41 mg/dL (0.51-0.95); Potassium 4.5 mmol/L (3.5-5.0); eGFR CKD-EPI 95.2 (>60)
[2022-12-26 08:08] LABS: Hematocrit 22.7 % (35-45); Hemoglobin 7.8 g/dL (11.5-14.3); Mean Corpuscular Hemoglobin 32.7 pg (27-33); Mean Corpuscular Hgb Conc 34.4 g/dL (31-36); Mean Corpuscular Volume 95.2 fL (80-97); Platelet Count 92 10^3/uL (150-450); Red Blood Count 2.38 10^6/uL (3.63-4.92); Red Cell Distribution Width 20.4 % (12-17); White Blood Count 2.4 10^3/uL (3.8-11.8)
[2022-12-26] MEDS: Cholecalciferol (VIT D3) 1,000 unit TAB PO SCH (09:17)
[2022-12-27 06:03] LABS: ABS Eosinophils 0.1 10^3/uL (0.0-0.5); ABS Lymphocytes 0.8 10^3/uL (1.0-4.8); ABS Monocytes 0.5 10^3/uL (0.0-0.9); ABS Neutrophils 1.2 10^3/uL (1.5-7.6); ABS Nucleated RBC 0.01 10^3/ul; Eosinophil % 4.6 %; Hematocrit 22.8 % (35-45); Hemoglobin 7.8 g/dL (11.5-14.3); Lymphocyte % 29.9 %; Mean Corpuscular Hemoglobin 32.8 pg (27-33); Mean Corpuscular Hgb Conc 34.4 g/dL (31-36); Mean Corpuscular Volume 95.5 fL (80-97); Mean Platelet Volume 9.1 fL (7.5-11.2); Nucleated Red Blood Cells % 0.2 /100 WBC (0.0-0.4); Platelet Count 102 10^3/uL (150-450); Red Blood Count 2.38 10^6/uL (3.63-4.92); Red Cell Distribution Width 20.2 % (12-17); White Blood Count 2.7 10^3/uL (3.8-11.8)
[2022-12-27 06:15] LABS: Calcium 8.7 mg/dL (8.6-10.3); Creatinine, Serum 0.44 mg/dL (0.51-0.95); Magnesium 1.8 mg/dL (1.9-2.7); Potassium 4.3 mmol/L (3.5-5.0); eGFR CKD-EPI 93.6 (>60)
[2022-12-27] MEDS ORDERED: Magnesium Sulfate 2 gm BAG 2 GM/50 ML BAG IVPB ONE (06:56)
[2022-12-27] MEDS: Cholecalciferol (VIT D3) 1,000 unit TAB PO SCH (08:27)
[2022-12-28 05:41] VITALS: BP 123/70
[2022-12-28] MEDS: Cholecalciferol (VIT D3) 1,000 unit TAB PO SCH (08:52)
== END 2022-12-28 11:20 | disposition hospice, home (50) | DRG 812 ==
LOC: EDHOLD 15:00 → ED 15:00 → MED 20:10 → SUATTDRO 12-19 11:19
PROVIDERS: ADMIT Student in an Organized Health Care Education/Training Program; ATTEND Internal Medicine